=== PATIENT | male | born 1985 | race Caucasian/White ===

== ENCOUNTER 2018-03-30 12:46 | Outpatient (RCR) | payer OTHER | END 2018-04-01 | LOC: PT 12:46 | PROVIDERS: ATTEND Specialist | DX: S16.1XXA Strain of muscle, fascia and tendon at neck level, initial encounter (principal); M54.2 Cervicalgia; M62.81 Muscle weakness (generalized) ==

== ENCOUNTER → 2018-03-30 | Outpatient (CLI) | payer OTHER ==
--- NOTE | 2018-03-30 18:11 | Diagnostic Imaging Report ---
MRI SPINE CERVICAL WO HISTORY: Chronic neck pain, neck injury COMPARISON: None. TECHNIQUE: Sagittal T1, sagittal T2, sagittal inversion recovery, axial T2 , axial T2 GRE, and axial T1 weighted MR images of the cervical spine were obtained without intravenous contrast. DISCUSSION: Alignment: Straightening of the cervical lordosis. No scoliosis. Vertebrae: No definite evidence for fractures, infection, or neoplasm. Cervicomedullary junction: No abnormalities. Spinal cord: Normal in signal and morphology from the foramen magnum through T2-T3. Soft tissues: No signal abnormalities. Mild multilevel disc degeneration is superimposed on a congenitally narrow cervical spinal canal. C2-C3: Patent canal and foramina. C3-C4: Patent canal and foramina. C4-C5: Mild canal stenosis due to disc bulge and ligamentum flavum thickening. Mild left foraminal stenosis due to uncovertebral and facet arthrosis. No significant right foraminal stenosis. C5-C6: Mild canal stenosis due to disc bulge and ligamentum flavum thickening. Mild right and mild to moderate left foraminal stenoses due to uncovertebral and facet arthrosis. C6-C7: Mild canal stenosis due to disc bulge and ligamentum flavum thickening. Mild bilateral foraminal stenoses due to uncovertebral and facet arthrosis. C7-T1: Patent canal and foramina. IMPRESSION: 1. Mild multilevel cervical disc degeneration superimposed on a congenitally narrow cervical spinal canal. 2. 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 3. Multilevel bilateral degenerative foraminal stenoses - mild to moderate on the left at C5-C6. Signed by: Dr. Filiberto Bond M.D. on 03/30/2018 6:08 PM
== END ==
LOC: MRI 15:12
PROVIDERS: ATTEND Specialist
DX: S16.1XXA Strain of muscle, fascia and tendon at neck level, initial encounter (principal)
CPT/HCPCS: 72141

== ENCOUNTER 2018-04-18 14:00 | Outpatient (RCR) | payer OTHER | END 2018-05-02 | LOC: PT 14:00 | PROVIDERS: ATTEND Specialist | DX: S13.4XXA Sprain of ligaments of cervical spine, initial encounter (principal) ==